=== PATIENT | female | born 1955 | race Caucasian/White ===

== ENCOUNTER 2017-06-09 13:55 | Emergency (ER) | payer OTHER ==
[2017-06-09 14:21] VITALS: BP 124/50
--- NOTE | 2017-06-09 14:22 | UC ---
[facility] H[facility] - HPI Summary HPI Summary: Patient has had a blister on the roof of the mouth next to her crown. it has been coming and going for the last month. her dentist has not seen any infection or trouble. - History of Current Complaint Chief Complaint: UCGeneralIllness Stated Complaint: ORAL/JAW PAIN Time Seen by Provider: 06/09/17 14:00 Hx Obtained From: Patient ?: No Onset/Duration: Gradual Onset, Lasting Weeks Severity: Mild Related History: Other - blister - Allergies/Home Medications Allergies/Adverse Reactions: Allergies Allergy/AdvReac Type Severity Reaction Status Date / Time Sulfamethoxazole Allergy Intermediate PETICHIA Verified 06/09/17 14:15 w/Trimethoprim [From Bactrim] Home Medications: Home Medications Gemfibrozil TAB* [Lopid TAB*] 1 tab BID 06/09/17 [History Confirmed 06/09/17] PMH/Surg Hx/FS Hx/Imm Hx Previously Healthy: Yes - hx of repeated sinus issues - Surgical History Surgical History: Yes Surgery Procedure, Year, and Place: HYSTERECTOMY, TUBAL, OVARIAN CYST, FIBROID CYST IN BREAST - Family History Known Family History: Negative: Cardiac Disease, Hypertension - Social History Substance Use Type: None Review of Systems Constitutional: Negative Skin: Negative Eyes: Negative ENT: Dental Pain Respiratory: Negative Cardiovascular: Negative Gastrointestinal: Negative Genitourinary: Negative Motor: Negative Neurovascular: Negative Musculoskeletal: Negative Neurological: Negative Psychological: Negative All Other Systems Reviewed And Are Negative: Yes Physical Exam Triage Information Reviewed: Yes Appearance: Well-Appearing, Well-Nourished, Pain Distress Vital Signs Reviewed: Yes Eye Exam: Normal Eyes: Positive: Conjunctiva Clear ENT: Positive: Pharynx normal, TMs normal Dental: Positive: Other: - small white blister on roof of mouth adjacent to the Neck exam: Normal Neck: Positive: Supple, Nontender, No Lymphadenopathy Respiratory Exam: Normal Respiratory: Positive: Chest non-tender, Lungs clear, Normal breath sounds Cardiovascular Exam: Normal Cardiovascular: Positive: RRR, No Murmur, Pulses Normal Abdominal Exam: Normal Abdomen Description: Positive: Nontender, No Organomegaly, Soft Bowel Sounds: Positive: Present Musculoskeletal Exam: Normal Musculoskeletal: Positive: Strength Intact, ROM Intact, No Edema Neurological Exam: Normal Neurological: Positive: Alert, Muscle Tone Normal Psychological Exam: Normal Skin Exam: Normal Dental Complaint Course/Dx - Course Course Of Treatment: hx obtained, exam performed, meds reviewed, educated on oral care, prescribed abx if needed - Differential Dx/Diagnosis Differential Diagnosis/Dx: Dental Abscess, Dental Caries, Pharyngitis Provider Diagnoses: blister, mouth. possible abcess Discharge - Discharge Plan Condition: Stable Disposition: HOME Additional Instructions: 1. Take a teaspoon of coconut oil 3-4 times day and swish in your mouth for 3-5 minutes, spit it into the trash and rinse mouth with warm water. 2. start eh antibiotic if you develop any increased pain or fever, swelling of the area. 3. Follow up with the dentist if it persists even with treatment
== END 2017-06-09 14:34 | disposition home or self-care (01) ==
LOC: UCCORT 13:55
DX: S00.522A Blister (nonthermal) of oral cavity, initial encounter (principal); X58.XXXA Exposure to other specified factors, initial encounter
CPT/HCPCS: 99202; G0463